=== PATIENT | female | born 1985 | race Two or more races ===

== ENCOUNTER 2024-07-24 00:01 | Emergency (ER) | payer OTHER ==
[~2024-07-24] VITALS: Ht 165.1 cm; Wt 68.0 kg
[2024-07-24] MEDS ORDERED: CEFTRIAXONE SODIUM 2,000 MG VIAL IV ONE (01:00)
[2024-07-24 01:46] LABS: HEMATOCRIT 33.3 % (36.0-45.00); HEMOGLOBIN 11.5 g/dL (12.0-15.00); MEAN CELL VOLUME 87.5 fL (80.00-100.00); MEAN CORPUSCULAR HEMOGLOBIN 30.2 pg (27.00-32.0); MEAN CORPUSCULAR HGB CONC 34.5 g/dl (32.0-36.0); PLATELET COUNT 229 K/uL (150-450)
[2024-07-24 02:07] LABS: ALBUMIN 3.8 gm/dL (3.4-5.0); BILIRUBIN TOTAL 0.26 mg/dL (0.3-1.2); CALCIUM 9.1 mg/dL (8.5-10.1); CREATININE SERUM 0.8 mg/dL (0.55-1.02); GFR 80.71; GLOBULINA 3.5 G/DL (2.4-3.5); POTASSIUM 4.14 mEq/L (3.5-5.1); TOTAL PROTEIN 7.3 gm/dL (6.4-8.2)
[2024-07-24 02:19] LABS: PH,URINE 6.5 (5.0-8.0); URINE APPEARANCE Turbid; URINE BILIRRUBIN Negative (NEGATIVE); URINE BLOOD Negative; URINE COLOR Yellow; URINE GLUCOSE Negative (NEGATIVE); URINE KETONE Trace (NEGATIVE); URINE LEUKOCYTE Moderate; URINE NITRATE Negative; URINE PROTEIN Negative (NEGATIVE); URINE UROBILINOGEN 0.2 E.U./dl
[2024-07-24 02:23] LABS: URINE RBC 17.7 uL (0.0-20.8)
[2024-07-24 02:28] LABS: URINE BACTERIA > 9821.5 uL (0.0-1933); URINE CAST 0.45 uL (0.0-1.40); URINE EPITHELIAL CELLS > 201.7 uL (0.0-38.8)
[2024-07-24] MEDS ORDERED: BACTRIM DS TAB1 EACH PO (02:48)
== END 2024-07-24 03:15 | disposition home or self-care (01) ==
LOC: ER 00:02
PROVIDERS: General Practice
DX: R33.9 Retention of urine, unspecified (principal); R10.2 Pelvic and perineal pain